=== PATIENT | female | born 1995 | race Caucasian/White ===

== ENCOUNTER 2018-01-12 06:19 | Inpatient (IN) | payer OTHER ==
[2018-01-12 07:16] VITALS: BMI 25.4
[2018-01-12] MEDS ORDERED: Lactated Ringer's 1,000 ML IV ONE (07:16)
[2018-01-12] MEDS: Lactated Ringer's 1,000 ML IV SCH ×2 (08:10→12:00)
[2018-01-12] MEDS ORDERED: Oxytocin 30 UNIT 30 UNITS/500 ML BAG IV ONE ×2 (08:30→20:15)
[2018-01-12 08:54] LABS: BASO % 0.5 % (0.0-2.0); EOS # 0.2 K/uL (0.0-0.7); EOS % 1.8 % (0.0-4.0); HEMOGLOBIN 13.2 g/dL (12.0-16.0); LYMPH % 20.3 % (20.0-40.0); MEAN CELL VOLUME 86.2 fl (81.0-99.0); MEAN CORPUSCULAR HEMOGLOBIN 28.9 pg (27.0-31.0); MEAN CORPUSCULAR HGB CONC 33.6 g/dL (33.0-37.0); MEAN PLATELET VOLUME 9.8 fl (7.2-11.7); MONO # 0.9 K/uL (0.0-0.8); MONO % 8.9 % (0.0-10.0); NEUT # 6.6 K/uL (1.8-7.0); NEUT % 68.5 % (50.0-75.0); NRBC % 0.4 % (0.0-0.0); RBC 4.55 Mil/uL (3.80-5.20); RED CELL DISTRIBUTION WIDTH 14.1 % (11.5-14.5); WHITE BLOOD COUNT 9.7 K/uL (4.8-10.8)
--- NOTE | 2018-01-12 17:47 | OBHP ---
Datetime: 01/12/2018 14:00 FHR - Baseline A Provider: 120 Contraction Comments Provider: Q3-4 Gestation - Est Wks by US: 38.4 Vital Signs Provider: Reviewed; Within Normal Limits NICHD Variability Prov Fetus A: Moderate 6-25bpm NICHD Accel Fetus A IP Provider: [id number] FHR Category Provider Fetus A: Category I NICHD Decel Fetus A IP Provider: None Dilatation, Provider: 4 Effacement, Provider: 90 Station, Provider: -2 Datetime: 01/12/2018 07:12 IP Admit Plan: Admit to unit Pelvic Type - PN: Adequate Extremities - PN: Normal Abdomen - PN: Normal Back - PN: Not Done Breast - PN: Not Done Lungs - PN: Normal Heart - PN: Normal Thyroid - PN: Not Done Neurologic - PN: Not Done HEENT - PN: Normal General - PN: Normal Comments, ACOG Physical Exam: Pt is lying on bed, uncomfortable due to contraction Heart s1/s2 heard no extra heart sound lung clear in all cuadrant abdomen: BS+, non tender fundos above umbilicus Pelvic: 2cm,70%, -2 EGA AdmitDate IP: 38.4 IP Indication for Induction: Not Applicable IP Chief Complaint: Uterine contractions; Suspected ruptured membranes Genitourinary Exam: Not Done Datetime: 01/12/2018 06:48 IP Adm Impression: Term, intrauterine ; Intact Membranes Admit Comment, IP Provider: Pt is a 22 yo f 38.4 with no pmh present to [facility] Due to noting flui d leak at 12am, and contraction that started at 5am, 5 min in frequency, unable to rate her pain, but state its consistent but dont radiate. Pt have no other complain. She denies N/V sob, chest pain or any other symtpoms. allergy none Med: PNV pmh none psh no PFH: none OBHx: none social : no smoke/drink or drug use Assessment Pt is a 22 yo f 38.4 with no pmh present to [facility] Due to noting fluid leak and contraction. wi ll be admitted for labor PE: 2cm,70%, -2 membrane intact Vitals WNl NST Reactive Plan Will admit to LND Order CBC LR 1 L push, and 1 L at 125mlh Order pit for after placenta delivery Type and cross Call anesthesia Case discussed with Dr Jeannette Donaldson1 Attending Note: Patient was seen and evaluated with resident and I agree with the above. Membranes, Provider: Intact Pool Provider: Negative Nitrazine Provider: Negative
[2018-01-12] MEDS ORDERED: Oxycodone/Acetaminophen 5/325 mg Tab PO PRN (20:58)
[2018-01-12] MEDS ORDERED: Benzocaine/Menthol SPRAY TOP PRN (20:58)
--- NOTE | 2018-01-12 21:55 | OBDS ---
DELIVERY PERSONNEL Delivery Doctor: Steffany Machado MD Gm Mobile: Viri Arroyo RN Resident: Dr. Orta Fellow MATERNAL INFORMATION Delivery Anesthesia: None Medications in Delivery: 30 units of pitocin Estimated Blood Loss (ml): 300 Placenta Cultured: No Maternal Complications: None Provider Comments: 22yo G1 admitted in latent labor, progressed appropriately to with no compli cations. Infant was delivered onto the mother's chest and delayed cord clamping was performed. No exc essive resuscitation was required. The placenta delivered without complication and EBL was 300cc. Mot her and infant were in stable condition. scores of 9 and 9 LABOR SUMMARY EDC: 01/22/2018 00:00 No. Babies in Womb: 1 Attempted: No Labor Anesthesia: None LABOR INFORMATION Reason for Induction: Not Applicable Onset of Labor: 01/12/2018 12:00 Complete Dilatation: 01/12/2018 19:58 Oxytocin: Augmentation Group B Beta Strep: Negative MEMBRANES Membranes Rupture Method: Artificial Rupture of Membranes: 01/12/2018 16:32 Length of Rupture (hrs): 4.10 Amniotic Fluid Color: Clear Amniotic Fluid Amount: Small Amniotic Fluid Odor: Normal STAGES OF LABOR Stage 1 hrs: 7 Stage 1 min: 58 Stage 2 hrs: 0 Stage 2 min: 40 Stage 3 hrs: 0 Stage 3 min: 6 Total Time in Labor hrs: 8 Total Time in Labor min: 44 VAGINAL DELIVERY Episiotomy: None Laceration Extension: First Degree Laceration Type: Vaginal Laceration Repair: Not Applicable Laceration Repair Note: The laceration was hemostatic without repair Initial Vag Sponge Count: 5 Final Vag Sponge Count: 5 Initial Vag Sharps Count: 0 Final Vag Sharps Count: 0 Sponge Count Correct: Yes Sharps Count Correct: N/A BABY A INFORMATION Infant Delivery Date/Time: 01/12/2018 20:38 Method of Delivery: Vaginal Born in Route : No : N/A Forceps: N/A Vacuum Extraction: N/A Shoulder Dystocia : No SHOULDER DYSTOCIA BABY A Infant Delivery Date/Time: 01/12/2018 20:38 PRESENTATION/POSITION BABY A Presentation: Cephalic Cephalic Presentation: Vertex Breech Presentation: N/A PLACENTA INFORMATION BABY A Placenta Delivery Time : 01/12/2018 20:44 Placenta Method of Delivery: Spontaneous Placenta Status: Delivered SCORES BABY A Heart Rate 1 min: >100 bpm Resp Effort 1 min: Good Cry Reflex Irritability 1 min: Cough or Sneeze or Pulls Away Muscle Tone 1 min: Active Motion Color 1 min: Body [place], Extremities Blue Resuscitation Effort 1 min: N/A SCORE 1 MIN: 9 Heart Rate 5 min: >100 bpm Resp Effort 5 min: Good Cry Reflex Irritability 5 min: Cough or Sneeze or Pulls Away Muscle Tone 5 min: Active Motion Color 5 min: Body [place], Extremities Blue Resuscitation Effort 5 min: N/A SCORE 5 MIN: 9 INFORMATION BABY A Gestational Age at Delivery: 38.4 Gestational Status: Term Outcome : Liveborn Infant Condition : Stable Infant Sex: Male IDENTIFICATION/MEDS BABY A ID Band Number: [id number] ID Band Location: Left Leg; Left Arm CORD INFORMATION BABY A No. Cord Vessels: 3 Nuchal Cord : Around Neck x1, Loose Nuchal Cord Other: N/A True Knot: N/A Cord pH Baby Arterial: N/A Cord pH Baby Venous: N/A Cord Blood Taken: Yes Banking/Donate Info: N/A Suction: Mouth; Nose
[2018-01-13] MEDS ORDERED: Benzocaine/Menthol SPRAY TOP PRN (00:21)
[2018-01-13 07:43] LABS: BASO % 0.1 % (0.0-2.0); EOS % 0.1 % (0.0-4.0); HEMOGLOBIN 12.9 g/dL (12.0-16.0); LYMPH # 2.4 K/uL (1.0-4.3); LYMPH % 9.3 % (20.0-40.0); MEAN CELL VOLUME 86.3 fl (81.0-99.0); MEAN CORPUSCULAR HEMOGLOBIN 28.1 pg (27.0-31.0); MEAN CORPUSCULAR HGB CONC 32.6 g/dL (33.0-37.0); MEAN PLATELET VOLUME 10.1 fl (7.2-11.7); MONO # 1.7 K/uL (0.0-0.8); MONO % 6.5 % (0.0-10.0); NEUT # 22.1 K/uL (1.8-7.0); PLATELET COUNT 280 K/uL (130-400); RBC 4.59 Mil/uL (3.80-5.20); RED CELL DISTRIBUTION WIDTH 14.5 % (11.5-14.5); WHITE BLOOD COUNT 26.3 K/uL (4.8-10.8)
[2018-01-13 10:36] LABS: LYMPHOCYTE 8 % (20-50); MONOCYTE 4 % (0-10); NEUTROPHIL 88 % (42-75); PLATELET ESTIMATE NORMAL (NORMAL); TOTAL CELLS COUNTED 100
--- NOTE | 2018-01-13 11:20 | OBPPN ---
Datetime: 01/13/2018 06:22 PP Pain Prov: Within normal limits PP Nausea Prov: Denies PP Flatus Prov: Yes PP BM Prov: No PP Breasts Prov: Not Done PP Heart Prov: Normal PP Lungs Prov: Normal PP Abdomen/Uterus Prov: Normal PP Lochia Prov: Normal PP Vulva/Perineum Prov: Not Done PP CVA Tenderness Prov: Not Done PP Extremities Prov: Normal PP C/S Incision Prov: Not Applicable PP Progress Prov: Normal PP Comments Phys Exam Prov: See Progress note PP Impression Prov: Normal progression PP Plan Prov: Continue present management PP Progress Note Prov: S: 22 yo female 38.4 normal vaginal delivery on 01/13/18 being evaluated on PPD1. Pt have no acute overnight. Pain is tolerated with medication, she have no complain as per today. She was able ambulate and void freely. Pt state that she have passed gas, but no stool. Lochi a is more than menses. She is and using formula. PT denies fever, chills, diarrhea, na usea/vomiting, chest pain, dyspnea, and dizziness. Pt would like to have baby circumcised O: 13.2/39.2 VS: Stable, WNL GEN: NAD Cardio: S1S2, no murmurs or extra heart sound Lungs: clear breath sounds b/l, no wheezing Abdomen: BS+, mildly tender, fundus 2cm below umbilicus, firm. EXT: No edema, calves non-tender NEURO/PSYCH: AAOx3, no grossly focal deficits, preserved affect and mood. H/H (post ): Pending Assessment/Plan: 22 yo female 38.4 NVD on 01/13/18 evaluated on PPD1. Pt remains afebrile, t olerating pain with medication. Tolerating diet. Anticipating tomorrow 01/14/18. Continue with curren t management Encourage and ambulating Will circumcise baby today Continue Ibuprofen 600mg q6 for mild-moderate pain. Keep monitoring lochia, fundus and vitals Sharita PGY1 Attending Note: Patient was seen and evaluated with the resident and I agree with the above assessment. Vital Signs Provider PP: Reviewed; Within Normal Limits
--- NOTE | 2018-01-14 10:51 | OBPPN ---
Datetime: 01/14/2018 07:54 PP Pain Prov: Within normal limits PP Nausea Prov: Denies PP Flatus Prov: Yes PP BM Prov: No PP Breasts Prov: Not Done PP Heart Prov: Normal PP Lungs Prov: Normal PP Abdomen/Uterus Prov: Normal PP Lochia Prov: Normal PP Vulva/Perineum Prov: Not Done PP CVA Tenderness Prov: Not Done PP Extremities Prov: Normal PP Impression Prov: Normal progression PP Plan Prov: Continue present management; Discharge PP Progress Note Prov: [place] Interpretor ([employer]): [id number] Rm PPD 2 S: 22 yo female 38.4 normal vaginal delivery on 01/12 seen and evaluated on post day 2 . Pt has no concerns/complaints. States she is doing well. Mild abdominal pain, controlled with meds. Tolerating regular diet. No BM yet, but passing gas per rectum. Lochia _menses. Ambulating w/o light headedness. Breast feeding without any difficulties. O: Vitals stable overnight, afebrile, good urine output, H/H: 12.9/39.6, WBC: 26.3 NAD Cardiopulmonary exam wnl Fundus firm Ext: no edema A/P: 22 yo female 38.4 normal vaginal delivery on 01/12, doing well on PPD2. Pain controlled, tolerating regular diet. Anticipating discharge today. Luekocytosis likely a physiological response to surgery, no signs of infection. Continue with current management. Laura PGY2 Addendum by Dr. Gordon: Patient evaluated independently and I agree with the above Vital Signs Provider PP: Reviewed; Within Normal Limits
--- NOTE | 2018-01-14 10:53 | OBDCSUM ---
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 Pain controlled, toelrating regular diet. Post H/H: 12.9/39.6. Discharge Instructions: 1. RX: Ibuprofen prn for pain 2. ER precautions: fever, heavy bleeding, severe abdominal pain inresponsive to meds 3. F/u with MD as discussed. Laura PGY2 Contraception after Delivery: Undecided
[2018-01-14 15:58] VITALS: BP 104/63; PULSE 68; RESP 18; TEMP 98.3; O2SAT 100
== END 2018-01-14 11:56 | disposition home or self-care (01) | DRG 373 ==
LOC: H.EROB2 06:19 → H.L&D 07:16 → H.OB/GYN 23:40
PROVIDERS: ADMIT Obstetrics & Gynecology; ATTEND Obstetrics & Gynecology
PROC: 10E0XZZ Delivery of Products of Conception, External Approach (ICD-10-PCS; principal; 2018-01-12)
PROC: 0HQ9XZZ Repair Perineum Skin, External Approach (ICD-10-PCS; 2018-01-12)
PROC: 10907ZC Drainage of Amniotic Fluid, Therapeutic from Products of Conception, Via Natural or Artificial Opening (ICD-10-PCS; 2018-01-12)
DX: O69.81X0 Labor and delivery complicated by cord around neck, without compression, not applicable or unspecified (principal); O70.0 First degree perineal laceration during delivery; Z37.0 Single live birth; Z3A.38 38 weeks gestation of pregnancy